=== PATIENT | female | born 1950 | race Caucasian/White ===

== ENCOUNTER 2017-05-17 20:04 | Emergency (ER) | payer MEDICARE, OTHER ==
[~2017-05-17] VITALS: Ht 157.5 cm; Wt 77.1 kg
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
--- NOTE | 2017-05-17 20:43 | NUR ---
REFUSED TO TAKE TYLENOL AT THIS TIME. VERBALIZED TAKING THEM LATER
--- NOTE | 2017-05-17 20:52 | NUR ---
PT REFUSING XRAYS, DR. JOSEPH IS AWARE.
--- NOTE | 2017-05-17 21:13 | NUR ---
Patient does not wish to proceed with medical care recommended by ( [facility] Patient given information related to possible complications, up to and including , which could occur as a result of leaving the hospital at this time. Patient verbalizes understanding of risks involved due to leaving against medical advice. Patient has signed AMA form.
== END 2017-05-17 21:14 | disposition left against medical advice (07) ==
LOC: ER 20:05
DX: M79.602 Pain in left arm (principal); E11.9 Type 2 diabetes mellitus without complications; I10 Essential (primary) hypertension; I25.10 Atherosclerotic heart disease of native coronary artery without angina pectoris; Z53.20 Procedure and treatment not carried out because of patient's decision for unspecified reasons
CPT/HCPCS: A4606

== ENCOUNTER 2019-04-30 17:45 | Inpatient (IN) | payer MEDICARE, MEDICAID ==
[~2019-04-30] VITALS: Ht 157.5 cm; Wt 61.2 kg
--- NOTE | 2019-04-30 17:50 | NUR ---
AAOX3, BIBPA from home on 5150 , for GPS admission, patient was refusing care, has not bathe in 2 months, not eating & losing weight, talking to herself. RR is even and unlabored with nad noted. Skin is warm and dry. Dr Billings at [facility] for eval.
[2019-04-30 18:26] LABS: BASOPHILS # (AUTO) 0.1 /CMM (0.0-0.2); BASOPHILS % (AUTO) 0.5 % (0.0-2.0); EOSINOPHILS % (AUTO) 0.1 % (0.0-6.0); HEMATOCRIT 43 % (33-45); HEMOGLOBIN 14.6 g/dL (11.5-14.8); LYMPHOCYTES # (AUTO) 1.6 /CMM (0.8-4.8); LYMPHOCYTES % (AUTO) 16.7 % (20.0-44.0); MEAN CORPUSCULAR HGB CONC 34 g/dl (31.0-36.0); MEAN CORPUSCULAR VOLUME 87 fL (82-100); MONOCYTES # (AUTO) 0.5 /CMM (0.1-1.30); MONOCYTES % (AUTO) 4.6 % (2.0-12.0); NEUTROPHILS # (AUTO) 7.6 /CMM (1.8-8.9); NEUTROPHILS % (AUTO) 78.1 % (43.0-81.0); PLATELET COUNT (AUTO) 273 /CMM (150-450); RED BLOOD CELL COUNT(AUTO) 4.95 MIL/uL (4.0-5.2); WHITE BLOOD COUNT (AUTO) 9.8 K/uL (4.3-11.0)
[2019-04-30 18:31] LABS: CARBON DIOXIDE 25 mmol/L (21-32); CHLORIDE 99 mmol/L (98-107); CREATININE 0.6 mg/dL (0.6-1.3); GLUCOSE 312 mg/dL (74-106); POTASSIUM 4.1 mmol/L (3.5-5.1); SODIUM SERUM 135 mmol/L (136-145); UREA NITROGEN, BLOOD 9 mg/dL (7-18)
[2019-04-30 18:37] LABS: ACETAMINOPHEN < 2 ug/ml (10-30); ALANINE AMINOTRANSFERASE 14 U/L (12-78); ALBUMIN 2.9 g/dL (3.4-5.0); ALCOHOL, BLOOD < 3 mg/dL (0-0); ALKALINE PHOSPHATASE 92 U/L (46-116); ASPARTATE AMINOTRANSFERASE 11 U/L (15-37); BILIRUBIN,DIRECT 0.1 mg/dL (0.0-0.2); BILIRUBIN,TOTAL 0.3 mg/dL (0.2-1.0); SALICYLATE 2.8 mg/dL (2.8-20.0); TOTAL PROTEIN, SERUM 6.6 g/dL (6.4-8.2)
--- NOTE | 2019-04-30 19:56 | NUR ---
CALLED [phone], THE CONTACT NUMBER TO GET POSSIBLE INFO REGARDING HOME MEDICATION WITH NO ANSWER.
--- NOTE | 2019-04-30 20:05 | NUR ---
REPORT GIVE TO KAILASH AT [facility]
--- NOTE | 2019-04-30 20:25 | NUR ---
Pt transfered to [facility] via wheelchair.
[2019-04-30 20:30] VITALS: BP 154/88
[2019-04-30] MEDS ORDERED: CLONIDINE HCL 0.1 MG TABLET PO PRN (20:30)
--- NOTE | 2019-04-30 20:30 | NUR ---
GPS ADMISSION NOTE, RECEIVED PATIENT FROM [facility] PATIENT ARRIVED ON THIS UNIT AT 2030 VIA STRETCHER WITH 2 EMT ESCORTS. PATIENT ADMITTED ON A 5150 HOLD FOR DTS AND GD. PER HOLD PATIENT HAS BEEN REFUSING CARE FROM [facility]. PATIENT HAS NOT SHOWERED IN TWO MONTHS, NOT EATING, LOSING WEIGHT, PATIENT IS TALKING TO HERSELF AND NOT MAKING ANY SENSE. PATIENT UNABLE TO CONTRACT FOR SAFETY AT THIS TIME. PATIENT IS UNABLE TO PROVIDE A VIABLE PLAN FOR SELF CARE. THE 5150 WAS REVIEWED AND THE DOCUMENTATION IN THE 5150 HOLD APPEARS TO REFLECT THE PRESENTATION OF THE PATIENT. UPON FACE TO FACE ASSESSMENT PATIENT IS NOTED TO BEING DISHEVELED, DISORGANIZED, DEMANDING, COOPERATIVE AT TIMES, PARANOID, CONFUSED, AND NEEDS REDIRECTION. PATIENT IS CURRENTLY LYING IN BED AWAKE, HAS NO S/S OR COMPLAINTS OF PAIN. PATIENT IS DISPLAYING NO S/S OF APPARENT DISTRESS. PATIENT BREATHING IS UNLABORED WITH EQUAL RISE AND FALL OF THE CHEST. PATIENT IS ALERT AND ORIENTATED X 2 ON ROOM AIR. PATIENT ASSISTED WITH TURING AND REPOSITIONING Q2HR AND PRN FOR COMFORT AND CIRCULATION. PATIENT HAS NO NEEDS AT THIS TIME. PATIENT DENIES SUICIDE IDEATIONS AND HOMICIDAL IDEATIONS AT THIS TIME. PATIENT SIGNED MOST OF THE PAPER WORK BUT REFUSED TO SIGNS 2 DOCUMENTS. PATIENT ADVISED OF HIS HOLD AND PATIENT RIGHTS BOOKLET GIVEN. PATIENT IS UNDER THE PSYCHIATRIC CARE OF DR. SANON AND THE MEDICAL CARE OF DR THOMPSON. PATIENT BELONGINGS WERE INVENTORIED AND CHECKED FOR CONTRABAND. ALL CONTRABAND REMOVED AND STORED IN PATIENT HALLWAY LOCKER. PATIENT ADVANCED DIRECTIVES PREFERENCE, IMMUNIZATIONS QUESTIONER, NECESSARY PAPERWORK COMPLETED. PATIENT SKIN ASSESSMENT COMPLETED. PATIENT ORIENTATED TO ROOM, FLOOR, AND STAFF WITH ALL QUESTIONS ANSWERED. PATIENT EDUCATED ON THE USE OF THE CALL BLEVINS. PATIENT BED SIDE RAILS ARE UP X 2 FOR SAFETY. PATIENT BED IS LOCKED, LOW AND I WILL CONTINUE TO MONITOR THIS PATIENT Q 15 MIN WITH THE HELP OF STAFF TO MAINTAIN SAFETY.
[2019-04-30] MEDS ORDERED: MAG HYDROX/AL HYDROX/SIMETH 30 ML UDC PO PRN (21:00)
[2019-04-30] MEDS ORDERED: ZOLPIDEM TARTRATE 5 MG TABLET PO PRN (21:00)
[2019-04-30] MEDS ORDERED: TEMAZEPAM 7.5 MG CAPSULE PO PRN (21:00)
[2019-04-30] MEDS ORDERED: ACETAMINOPHEN 325 MG TABLET PO PRN (21:00)
[2019-04-30] MEDS ORDERED: BLOOD SUGAR DIAGNOSTIC 1 EACH STRIP IN ONE (21:00)
[2019-04-30] MEDS ORDERED: DEXTROSE 50%-WATER 50 ML DISP.SYRIN IV PRN (22:30)
[2019-04-30] MEDS: INSULIN REGULAR, HUMAN 100 UNIT/ML 3 ML VIAL SQ PRN (22:44)
--- NOTE | 2019-04-30 22:44 | NUR ---
GPS RN NOTE, PERFORMED ACCU CHECK ON PATIENT WITH A BLOOD SUGAR RESULT OF 277. GAVE 6 UNITS OF REGULAR INSULIN PER MILD SLIDING SCALE. WILL CONTINUE TO MONITOR THIS PATIENT.
[2019-05-01] MEDS: BLOOD SUGAR DIAGNOSTIC 1 EACH STRIP IN SCH ×4 (07:32→22:00)
[2019-05-01] MEDS: INSULIN REGULAR, HUMAN 100 UNIT/ML 3 ML VIAL SQ PRN (07:34)
[2019-05-01 08:00] VITALS: BP 115/59
--- NOTE | 2019-05-01 09:39 | NUR ---
AIR POLLUTION AUDITOR/MED RECON UNABLE TO UPDATE HOME MEDICATION INFORMATION AT THIS TIME. PATIENT UNABLE TO PROVIDE INFORMATION. CALLED NUMBER NOTED IN CHART WITH NO ANSWER. CALLED PATIENT PCP-DR. SUZETTE DURBIN [phone] AND REQUESTED FOR MEDICATION INFORMATION, FAXED AUTHORIZATION. WAITING FOR FAX. PRIMARY NURSE MADE AWARE.
--- NOTE | 2019-05-01 14:13 | NUR ---
GROUP NOTE: SW encouraged pt to participate in group therapy on this present day to discuss "positive coping skills." Pt refused to attend stating she was in pain and wanted to remain in bed. SW provided individual intervention to address pts treatment plan pt stated that she did not know why she was here and wanted to be discharged home.
--- NOTE | 2019-05-01 15:49 | NUR ---
SUZAN called the pts case management assistant, Martita Rueda ([phone]), and left a voicemail stating that the SW would like to speak to her about the pt and the history. SUZAN left a phone number for her to be contacted at.
[2019-05-01 16:00] VITALS: BP 115/72
--- NOTE | 2019-05-01 20:00 | NUR ---
RN NOTES Received pt. inside her room, she refused vital sign... pt removed her underwear and she's wearing pads , noticed vaginal bleeding...per pt she has uterine cancer... dayshift nurse also endorsed on her report... not in distress, no pain noted, will continue to monitor
--- NOTE | 2019-05-01 22:00 | NUR ---
RN NOTES patient refused accu check, explained the benefits of checking her blood sugar but pt. still refusing.. offered some snack because pt. did not eat much dinner time ...pt agreed to eat strawberry sandwich
[2019-05-02] MEDS: BLOOD SUGAR DIAGNOSTIC 1 EACH STRIP IN SCH ×4 (07:30→22:00)
[2019-05-02 08:00] VITALS: BP 163/72
[2019-05-02] MEDS: CLONIDINE HCL 0.1 MG TABLET PO PRN ×2 (08:19→08:31)
[2019-05-02] MEDS: ESCITALOPRAM OXALATE (10 MG) 10 MG TABLET PO SCH ×3 (08:19→11:52)
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
--- NOTE | 2019-05-02 11:53 | NUR ---
After Psychiatrist spoke to the pt, she agreed to take the Lexapro.
--- NOTE | 2019-05-02 15:10 | NUR ---
GPS/RN - Notes Patient refused CT abdomen and head without contrast to r/o metastasis, stated "I just had an MRI abdomen and MRA brain/neck done last 6 months ago, it's not going to change that much. I don't want too much exposure to radiation."
[2019-05-02 16:00] VITALS: BP 156/84
--- NOTE | 2019-05-02 16:05 | NUR ---
Initial Discharge Plan: Pt currently resides in her home alone located at [address] [place] [address]; ([phone]). Per pt, she would like to return home. SUZAN will work with the MD and the pts APS SUZAN for appropriate discharge planning. SW will form a safe and proper discharge.
--- NOTE | 2019-05-02 22:10 | NUR ---
PT REFUSED BLOOD SUGAR TO BE CHECKED. OFFER 3X. PT STILL REFUSED. WILL CONTINUE TO MONITOR FOR S/SX OF HYPO/HYPERGLYCEMIA.
--- NOTE | 2019-05-03 08:21 | NUR ---
Initial Received pt. inside her room, pt walking around unit wanting to talk to nurse. 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
--- NOTE | 2019-05-03 08:29 | NUR ---
pt refusing accu-check
[2019-05-03] MEDS: BLOOD SUGAR DIAGNOSTIC 1 EACH STRIP IN SCH ×4 (08:30→22:00)
[2019-05-03] MEDS: INSULIN REGULAR, HUMAN 100 UNIT/ML 3 ML VIAL SQ PRN ×3 (08:31→17:54)
[2019-05-03] MEDS: MAGNESIUM HYDROXIDE 30 ML UDC PO PRN (08:54)
[2019-05-03] MEDS: ESCITALOPRAM OXALATE (10 MG) 10 MG TABLET PO SCH (08:54)
--- NOTE | 2019-05-03 08:55 | NUR ---
pt refusing to take lexapro only wants milk of magnesium
--- NOTE | 2019-05-03 10:06 | NUR ---
pt continues with c/c of constipation called [facility] and spoke with Irais sidhu ordered pt refused miralax
--- NOTE | 2019-05-03 10:19 | NUR ---
pt refused ct scan wants ultra sound
[2019-05-03] MEDS: DULOXETINE HCL 30 MG CAPSULE.DR PO SCH (10:21)
--- NOTE | 2019-05-03 11:05 | NUR ---
SUZAN and the pts MD, Dr. Ayers, met with the pt in the activities room to discuss her discharge planning. Pt stated that she wanted to return home and remain taking her palliative care medicine. Pts doctor stated that he can get the medicine for her while she is in the hospital and that the SW and the MD will meet with her once again on Monday to figure out a plan.
[2019-05-03] MEDS: NA PHOS,M-B/NA PHOS,DI-BA 1 EA ENEMA RC PRN ×2 (11:06→14:26)
--- NOTE | 2019-05-03 11:08 | NUR ---
PT BACK FROM CT SCAN GIVEN NEMESIO TUCKER
--- NOTE | 2019-05-03 12:57 | NUR ---
PT UNCOOPERATIVE REFUSING CARE AND LAB DRAWS ONLY ARAVIND CARRASQUILLO
--- NOTE | 2019-05-03 13:22 | NUR ---
PT REQUESTING SECOND GARRETT JUAREZ TO GIVE
--- NOTE | 2019-05-03 14:18 | NUR ---
PAGED AND SPOKE WITH Irais GTZ FOR PAIN MEDICATION WILL MONITOR FOR ORDERS
--- NOTE | 2019-05-03 14:35 | NUR ---
GROUP NOTE: SW attempted to encourage pt to participate in group however during attempt pt was walking out of her room with feces on her hands. Pt defecated on self and was attempting to remove the feces from her body and was walking around with it on her hands.
--- NOTE | 2019-05-03 14:38 | NUR ---
PT HAD SMALL BOWEL MOVEMENT AFTER FIRST FLEETS
[2019-05-03] MEDS: oxyCODONE HCL SR 10MG TAB.SR.12H PO SCH ×2 (14:53→23:59)
--- NOTE | 2019-05-03 15:06 | NUR ---
PT HAD SMALL WATERY RESPONSE TO SECOND ENAMA SOILED GOWN CLEANED BED AND PT TAKEN TO SHOWER
[2019-05-03 16:00] VITALS: BP 139/51
--- NOTE | 2019-05-03 16:22 | NUR ---
Pts friend, Caitlin Arthur ([phone]), called the SW and stated that she would like to be updated regarding the pts discharge plan. SW informed her that the MD and the SW are going to meet with the pt once again on Monday and will decide the plan.
--- NOTE | 2019-05-03 18:29 | NUR ---
CLOSING PT GIVEN ALL MEDICATIONS NEEDS TENDED TO KEPT SAFE BED IN LOW POSITION WITH GIVEN REPORT TO PM NURSE FOR CONTINUITY OF CARE
--- NOTE | 2019-05-03 20:42 | NUR ---
rn notes: provided with cup of fresh water. pt drink 100% wo aspiration.
[2019-05-04] MEDS: BLOOD SUGAR DIAGNOSTIC 1 EACH STRIP IN SCH ×4 (07:51→22:00)
[2019-05-04] MEDS: DULOXETINE HCL 30 MG CAPSULE.DR PO SCH (08:48)
[2019-05-04] MEDS: oxyCODONE HCL SR 10MG TAB.SR.12H PO SCH ×2 (08:49→21:00)
--- NOTE | 2019-05-04 08:50 | NUR ---
[id number],ate 25% breakfast-refused cymbalta and insulin
--- NOTE | 2019-05-04 12:15 | NUR ---
refused accu-check
--- NOTE | 2019-05-04 16:49 | NUR ---
refusing accu-check
--- NOTE | 2019-05-04 19:30 | NUR ---
rn notes: Receiving report from dorys dean. pt found ambulating in the hallway, pulling a chair, stated she was looking for her room because she couldn't find it. informed pt to let go of the chair as we will replaced it with a walker,which is more safer and stable than the chair but pt refused, insisted she can ambulate on her own and does not want to get rid of chair. As she was making a turn, she fell and hit her head (right side) on the rails of kristin chair (there is pt placed on [employer] at that time). Pt was assisted to get up with help of 2 person/cyber security engineer. assisted back to bed. performed assessment. no noted bleeding on head area, but pt c/o head ache and pain on right side of the head. upon palpation, felt a bump on right side of the head about size of a quarter. neuro check performed. will monitor accordingly. safety precautions for fall initiated, side rails up x 3 for safety.
--- NOTE | 2019-05-04 19:45 | NUR ---
rn notes: contacted md chief contract officer to notify event
--- NOTE | 2019-05-04 19:57 | NUR ---
rn notes: received call from pupil personnel services director survey instrument operator thom, relayed about pt's fall. per survey instrument operator t/o obtained to do "stat head ct wo contrast, offer tylenol for c/o pain or head ache". order read back and verified. noted and carried out.
[2019-05-04 20:00] VITALS: BP 126/59
--- NOTE | 2019-05-04 20:01 | NUR ---
rn notes: contacted ct scan ext [phone], no answer. contacted radiology ext [phone], spoked to shahid. informed about pt stat ct head wo contrast order for pt s/p fall. informed no one's answering ct scan department. per shahid, there is a lot of pt in er, and it will take an hour to do head ct. notified clinical nursing intern chelsie. will continue monitoring pt.
--- NOTE | 2019-05-04 20:10 | NUR ---
rn notes: rn sitting in pt room to watch the pt
--- NOTE | 2019-05-04 20:16 | NUR ---
rn notes: informed pt about plan of md, offered tylenol but pt refused. stated she doesnt want any medication at this time. she only asked for water. pt a/o x3, on ra respirations even and unlabored. will continue monitoring pt.
--- NOTE | 2019-05-04 20:20 | NUR ---
RN NOTES: FALL PRECAUTIONS REMAINS ENGAGED. PT WEARING NON SKID SOCKS. EDUCATION PROVIDED TO PT TO IMPORTANCE OF SAFETY, AND REASON WHY SHE WILL BE ON FALL RISK CATEGORY.
--- NOTE | 2019-05-04 20:25 | NUR ---
RN NOTES: NOTIFIED RN JARON ARREDONDO REGARDING INCIDENT. NOTIFIED PT'S NEXT OF KIN SUNNY FERRELL AT [phone] REGARDING INCIDENT. GIVEN UPDATE ABOUT PT CONDITION. AWAITING CT SCAN
--- NOTE | 2019-05-04 20:40 | NUR ---
rn notes: received call from radiology. asking if its possible for our staff to just bring pt down to ct dept so they can do ct scan now, as they're really short of staff. will bring pt down to ct scan via wheelchair.
--- NOTE | 2019-05-04 20:50 | NUR ---
RN NOTES: SERVICES COORDINATOR AND RN ASSISTING PT TO BE TRANSFERRED TO WHEELCHAIR, PT YELLED NOT TO HOLD ONTO HER RIGHT ARM AND AXILLARY AREA. WE ASKED PT ON HOW CAN WE TRANSFER HER TO WHEELCHAIR SINCE SHE DOESN'T US TO HOLD HER. PT INSTEAD YELLED RAISED HER VOICE ON TOP OF HER LUNGS "I AM PAYING YOU HERE". INFORMED PT SHE DOESN'T NEED TO YELL OR SCREAM, SHE INSTEAD CAN JUST SPEAK/TALK PROPERLY IN A NICE WAY.
--- NOTE | 2019-05-04 20:52 | NUR ---
rn notes: pt wheeled down to ct dept
--- NOTE | 2019-05-04 20:59 | NUR ---
rn notes: done with ct. back to the unit. placed comfortably in bed.
[2019-05-04 21:00] VITALS: BP 120/62
--- NOTE | 2019-05-04 21:10 | NUR ---
rn notes: applied ice pack to head area for 15mins
--- NOTE | 2019-05-04 21:30 | NUR ---
rn notes: provided with fresh cup of water and orange ju9ice which pt drink 100%
--- NOTE | 2019-05-04 21:35 | NUR ---
dianne nnotes: removed ice pack at this time.
--- NOTE | 2019-05-04 22:06 | NUR ---
refusal for accu check and oxycontin: pt refusing any medications at this time, especially oxycontin. she claimed its making her constipated. also refused accu check. education provided to pt regarding compliance, risk and benefits. pt insisted she doesnt want anything but for enema.
--- NOTE | 2019-05-04 22:08 | NUR ---
rn notes: result of ct yates came back. IMPRESSION: 1. No acute intracranial hemorrhage or subdural collection. 2. Old right MCA distribution infarct. 3. Stable CT brain from 1 day earlier.
[2019-05-04] MEDS: NA PHOS,M-B/NA PHOS,DI-BA 1 EA ENEMA RC PRN (22:19)
--- NOTE | 2019-05-04 22:20 | NUR ---
prn fleet enema: pt requested for enama, stated she's constipated. prn fleet administered at this time.
--- NOTE | 2019-05-04 22:43 | NUR ---
rn notes: provided apple juice and cup of fresh water to pt.
--- NOTE | 2019-05-04 23:00 | NUR ---
RN NOTES: ASSISTED PT TO BED SIDE COMMODE. PT YELLED AT MONICA ORO, BECAUSE PT DOESNT WANT ANYBODY HOLDING HER. BUT PT HAS FLACCID LEFT UPPER EXTREMITIES, AND HER RIGHT ARM IS WEAK SO SHE NEEDS HELP GETTING OUT OF BED TO BE TRANSFERRED TO BEDSIDE COMMODE. PT YELLING AND SCREAMING TO COMMERCIAL FRONT LOAD OPERATOR. SHE EVEN YELLED THAT " I AM PAYING YOU, THAT'S WHY YOU ARE HERE". COMMERCIAL FRONT LOAD OPERATOR SKED HOW TO HELP THE PT SINCE PT DOESNT WANT TO BE TOUCH/HOLD ON THE RIGHT ARM AND AXILLARY AREA FOR SUPPORT IN GETTING UP. PT DIDN'T SAY ANYTHING.
--- NOTE | 2019-05-04 23:05 | NUR ---
rn notes: rn will be sitting in the pt's room to provide safety, monitoring pt behavior and activity
[2019-05-05] VITALS: BP 124/88
--- NOTE | 2019-05-05 00:05 | NUR ---
rn notes: pt sleeping at this time.
--- NOTE | 2019-05-05 00:30 | NUR ---
rn notes: pt remains to be asleep, arouses to tactile stimuli
--- NOTE | 2019-05-05 01:00 | NUR ---
rn notes: asleep, respirations even and unlabored. will continue monitoring pt
--- NOTE | 2019-05-05 01:30 | NUR ---
rn notes: knot bumper assisted pt to bedside commode, pt voided freely, no bm noted. assisted back to bed. pt went back to sleep.
--- NOTE | 2019-05-05 02:00 | NUR ---
rn notes: pt sleeping, no facial grimace noted
--- NOTE | 2019-05-05 02:30 | NUR ---
rn notes: sleeping at this time, respirations even and unlabored.
--- NOTE | 2019-05-05 03:00 | NUR ---
rn notes: appears calm and comfortable, no facial grimace noted. fall precautions remains engaged
--- NOTE | 2019-05-05 04:00 | NUR ---
rn notes: sleeping, will continue to monitor
--- NOTE | 2019-05-05 05:00 | NUR ---
rn notes: bindery assistant provided bed bath to the pt.
--- NOTE | 2019-05-05 06:00 | NUR ---
rn notes: pt sleeping, appears calm and comfortable, no facial grimace noted. fall precautions remains engaged.
[2019-05-05] MEDS: BLOOD SUGAR DIAGNOSTIC 1 EACH STRIP IN SCH ×4 (07:30→22:05)
[2019-05-05 08:00] VITALS: BP 150/99
[2019-05-05] MEDS: DULOXETINE HCL 30 MG CAPSULE.DR PO SCH (08:33)
[2019-05-05] MEDS: oxyCODONE HCL SR 10MG TAB.SR.12H PO SCH ×2 (08:33→21:05)
[2019-05-05] MEDS: LORAZEPAM 1 MG TABLET PO PRN (13:44)
--- NOTE | 2019-05-05 13:44 | NUR ---
rn notes administered ativan 1 mg po prn for anxiety, also administered maalox 30 ml po prn for stomachache. v/s taken bp 151/67, p-79, r-21. continued monitoring.
[2019-05-05 15:52] VITALS: BP 150/84
[2019-05-05] MEDS: INSULIN REGULAR, HUMAN 100 UNIT/ML 3 ML VIAL SQ PRN ×3 (18:21→22:13)
[2019-05-05 20:26] VITALS: BP 163/80
[2019-05-05 23:00] VITALS: BP 135/78
[2019-05-06 08:00] VITALS: BP 160/75
[2019-05-06] MEDS: BLOOD SUGAR DIAGNOSTIC 1 EACH STRIP IN SCH ×4 (08:21→21:14)
[2019-05-06] MEDS: INSULIN REGULAR, HUMAN 100 UNIT/ML 3 ML VIAL SQ PRN ×3 (08:23→21:17)
[2019-05-06] MEDS: oxyCODONE HCL SR 10MG TAB.SR.12H PO SCH ×3 (08:30→21:00)
[2019-05-06] MEDS: DULOXETINE HCL 30 MG CAPSULE.DR PO SCH ×2 (08:30→09:59)
--- NOTE | 2019-05-06 08:58 | NUR ---
SW called the pts disease case manager rn, Martita Rueda ([phone]), and informed her that the pt presents as having the capacity to make her own decisions per the psychiatrists evaluation. SW stated that the SW and the psychiatrist are going to meet with the pt today and discuss her discharge plan. manager icu stated that the pt will most likely want to return home and the SW stated that if it is a safe environment then she has the right to do so.
--- NOTE | 2019-05-06 09:40 | NUR ---
RN NOTES PATIENT REFUSED 0900 MEDICATIONS CYMBALTA AND OXYCONTIN. INFORMED PATIENT OF THE USES OF EACH MEDICATION AND THE IMPORTANCE OF MEDICATION COMPLIANCE. PT CONTINUES TO REFUSE MEDICATION. DR FAB NORMAN.
--- NOTE | 2019-05-06 10:03 | NUR ---
RN NOTES PT MED COMPLIANT AFTER SPEAKING WITH DR SANON.
--- NOTE | 2019-05-06 15:29 | NUR ---
Group Note: SW attempted to encourage pt to participate in group on 05/06/19 at 2pm on discharge planning however the pt stated that she is aware that the psychiatrist is going to discharge her once she takes her medications. SW stated that she can discuss her feelings around being discharged back home and what she has learned from this experience and the pt stated that she was in too much pain to do so.
[2019-05-06 16:00] VITALS: BP 153/78
--- NOTE | 2019-05-06 16:19 | NUR ---
SUZAN met with pts friend, Caitlin Arthur ([phone]), and Dr. Ayers, to discuss the pts discharge plan. It was discussed that if the pt is compliant with her medications for a few days then the pt will be discharged home with home health services.
[2019-05-06] MEDS: LORAZEPAM 1 MG TABLET PO PRN (19:30)
[2019-05-06 19:54] VITALS: BP 151/74
--- NOTE | 2019-05-06 21:18 | NUR ---
RN NOTES: PT. BLOOD SUGAR 291 MG/DL, BUT PT. 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 REFUSED TO TAKE OXYCONTIN 10 MG , PT. STATES I DONT ANY PAIN AT THIS TIME , I DONT WANT TAKE ANY MEDS.
[2019-05-07 08:00] VITALS: BP 160/82
[2019-05-07] MEDS: oxyCODONE HCL SR 10MG TAB.SR.12H PO SCH ×2 (08:06→21:00)
[2019-05-07] MEDS: DULOXETINE HCL 30 MG CAPSULE.DR PO SCH (08:06)
[2019-05-07] MEDS: INSULIN REGULAR, HUMAN 100 UNIT/ML 3 ML VIAL SQ PRN ×2 (08:08→17:29)
[2019-05-07] MEDS: BLOOD SUGAR DIAGNOSTIC 1 EACH STRIP IN SCH ×4 (08:08→22:00)
--- NOTE | 2019-05-07 13:52 | NUR ---
SW called pts friend, Caitlin Arthur ([phone]), and informed her that the pt is going to be discharged the next day and that she can call the SW back once she knows what time she can pick the pt up.
--- NOTE | 2019-05-07 15:15 | NUR ---
Group Note: SW attempted to encourage pt to participate in group therapy on 05/07/19 at 2pm on the topic of support systems and the impact on ones life. Pt stated that she did not want to participate because she was in pain and stated, "What medicine are they giving me? It is causing me so much pain! I need help!"
[2019-05-07 16:01] VITALS: BP 159/80
--- NOTE | 2019-05-07 19:35 | NUR ---
RN NOTES RECEIVED REPORT FROM [facility] HOUSER. FOUND Pt AWAKE, ATTEMPTED TO GET OUT OF BED. ASSISTED Pt BACK INTO BED. NO S/S OF ACUTE DISTRESS OR SOB NOTED. RESPIRATIONS EVEN AND UNLABORED WITH EQUAL CHEST RISE AND FALL. Pt IS ABLE TO COMMUNICATE AND MAKE NEEDS KNOWN AND ANSWER QUESTIONS. SAFETY MEASURES IN PLACE. BED LOW, LOCKED, HOB ELEVATED, SIDE RAILS UP, BED ALARM ON. WILL CONTINUE TO MONITOR Pt's CONDITION AND SAFETY THROUGHOUT THE NIGHT.
--- NOTE | 2019-05-07 20:30 | NUR ---
PER DR GIFFORD: WANTS TO OBTAIN PATHOLOGY REPORT FROM [facility].
[2019-05-07 21:06] VITALS: BP 157/67
--- NOTE | 2019-05-07 22:31 | NUR ---
Pt REFUSED HER HS ACCUCHECK BIN. ATTEMPTED X3 Pt CONTINUED TO REFUSE & SAID THAT HER FINGERS HURT.
[2019-05-08] MEDS: NA PHOS,M-B/NA PHOS,DI-BA 1 EA ENEMA RC PRN (06:30)
--- NOTE | 2019-05-08 06:33 | NUR ---
Pt REQUESTED FOR ENEMA.
[2019-05-08] MEDS: BLOOD SUGAR DIAGNOSTIC 1 EACH STRIP IN SCH ×3 (07:30→17:23)
--- NOTE | 2019-05-08 07:40 | NUR ---
RN NOTES PT REFUSED BLOOD SUGAR CHECK. RISK AND BENEFITS EXPLAINED, INSIST TO REFUSE.
[2019-05-08 08:00] VITALS: BP 152/84
[2019-05-08] MEDS: DULOXETINE HCL 30 MG CAPSULE.DR PO SCH (08:56)
[2019-05-08] MEDS: oxyCODONE HCL SR 10MG TAB.SR.12H PO SCH (08:56)
--- NOTE | 2019-05-08 09:47 | NUR ---
DR. SANON GAVE AN ORDER TO D/C HOLD AND D/C HOME AND TO FOLLOW UP WITH PSYCH AND MEDICAL DOCTORS. ANTIONETTE SHELDON MADE AWARE OF THE DISCHARGE AND PROVIDED A PRESCRIPTIONS. AND HOME HEALTH. Addendum: 05/08/19 at 1844 by KOKO COHEN RN PT. WITHOUT DISTRESS, DENIES SUICIDAL AND HOMICIDAL.
--- NOTE | 2019-05-08 11:03 | NUR ---
SUZAN faxed a home health order to [facility] with attention to Cynthia to the fax number: [phone].
--- NOTE | 2019-05-08 11:10 | NUR ---
RN NOTES PT REQUESTED ANOTHER ENEMA OR SUPPOSITORY. BUT PER NIGHT RN, PT JUST HAD ENEMA IN HER SHIFT AND HAD A BOWEL MOVEMENT.
[2019-05-08] MEDS: MAGNESIUM HYDROXIDE 30 ML UDC PO PRN (11:16)
--- NOTE | 2019-05-08 11:35 | NUR ---
RN NOTES PT REQUESTING FOR ATIVAN PRN. GIVEN TO PT ORDERED FOR ANXIETY.
[2019-05-08] MEDS: LORAZEPAM 1 MG TABLET PO PRN (11:37)
[2019-05-08] MEDS ORDERED: oxyCODONE HCL SR 10MG TAB.SR.12H PO ONE (12:30)
--- NOTE | 2019-05-08 12:30 | NUR ---
RN NOTES PT REFUSED SCHEDULED MORNING MEDICATION OXYCONTIN AND CYMBALTA. AND NOW PT IS YELLING BECAUSE OF PAIN. CALLED HOSPITALIST/AP MADE HIM AWARE AND ORDERED TO PLACE ORDER FOR ONE TIME DOSE OF OXYCONTIN 10MG. WILL CONTINUE TO MONITOR.
[2019-05-08] MEDS ORDERED: DULOXETINE HCL 30 MG CAPSULE.DR PO ONE (14:30)
--- NOTE | 2019-05-08 14:49 | NUR ---
RN NOTES CYMBALTA 30MG PLACED FOR ONE TIME ORDER PER DR. SANON PRIOR DISCHARGE. PT INSISTED TO REFUSE MEDICINE STATING"THAT IS POISON, I DONT WANT ANY POISON IN MY BODY AND IM GOING TO CALL POLICE, I WILL GO AMA INSTEAD". RN EXPLAINED RISK AND BENEFITS. DR SANON AND CROP PULLER PRESENT AT BEDSIDE AND WITNESSED PT REFUSAL. HEIDY/KOKO AWARE OF SITUATION.
--- NOTE | 2019-05-08 15:27 | NUR ---
Group Note: SW invited and encouraged patient to attend today's 05/08/19 support group regarding positive coping mechanisms. The patient refused stating, "No I don't want to take any poison".
[2019-05-08 16:00] VITALS: BP 157/89
--- NOTE | 2019-05-08 16:25 | NUR ---
Discharge Note: Pt was discharged back to her home [place] [address] [place] [address]; ([phone]). Pt was picked up by her friend, Caitlin ([phone]), around 5pm. Upon discharge, the pt appeared to be in a depressed mood and presented with a distressed affect. Pt was paranoid that she would not be discharged back to her home. Pt denied both suicidal and homicidal ideation as well as auditory and visual hallucinations. Pt was referred to home health and has an [facility] mobile sales expert for support as well. Pt was referred to [facility] located at [address] [facility] [address] [address]; for psychiatric services. A fax of records was sent to: [phone]. Pt will be under the care of her frit maker, Dr. Wm Maria, located at [address] [facility] [address] [facility] [address], [place] [address]; .
--- NOTE | 2019-05-08 17:17 | NUR ---
GEOSPATIAL PROGRAM MANAGEMENT OFFICER NOTES PT TO DISCHARGE HOME ACCOMPANIED BY GUARDIAN/FRIEND/SUNNY. PT TOLERATING RA, WITH NO ACUTE RESPIRATORY DISTRESS NOTED. VS STABLE AND RECORDED. PT DENIES ANY PAIN OR DISCOMFORT AT THE TIME OF DISCHARGE. DISCHARGE INSTRUCTIONS, INVENTORY LIST AND DISCHARGE PAPERS REVIEWED AND SIGNED BY SUNNY; PT PRESENT AND AWARE. PRESCRIPTIONS GIVEN TO SUNNY AND PT. ALL BELONGINGS WITH THE PT. ALL NEEDS AND CARE ATTENDED. GUARDIAN/SUNNY MADE AWARE OF PT'S BEHAVIOR OF BEING NON-COMPLIANT WITH MEDICATIONS.PT DENIES SI/HI EPISODES. PT LEFT THE UNIT AT 1715, ESCORTED TO THE LOBBY VIA WHEELCHAIR BY RN. CN/KOKO AND PSYCHIATRIST/DR SANON AND HOSPITALIST/DISPENSARY TECHNICIAN/AP AWARE OF DISCHARGE.
--- NOTE | 2019-05-08 17:22 | NUR ---
RN NOTES PT'S SKIN INTACT, NO PICTURES TAKEN OR FILED. PT'S GUARDIAN PRESENT AT BEDSIDE WITNESSED.
== END 2019-05-08 17:00 | disposition home or self-care (01) | DRG 881 ==
LOC: ER 17:55 → GPS 19:18
PROVIDERS: ADMIT Psychiatry & Neurology Psychiatry; ATTEND Nurse Practitioner Acute Care
DX: F32.9 Major depressive disorder, single episode, unspecified (principal); E11.65 Type 2 diabetes mellitus with hyperglycemia; E44.0 Moderate protein-calorie malnutrition; E87.1 Hypo-osmolality and hyponatremia; I10 Essential (primary) hypertension; I25.10 Atherosclerotic heart disease of native coronary artery without angina pectoris; C54.1 Malignant neoplasm of endometrium; Z86.73 Personal history of transient ischemic attack (TIA), and cerebral infarction without residual deficits; E88.09 Other disorders of plasma-protein metabolism, not elsewhere classified; Z91.19 Patient's noncompliance with other medical treatment and regimen; Z68.24 Body mass index [BMI] 24.0-24.9, adult
CPT/HCPCS: 36415; 70450-TC; 80048-TC; 80076-TC; 82962-TC; 85025-TC; 87081-TC; 97116-TC; 97530-TC; G0480; J1815